=== PATIENT | male | born 1970 | race Caucasian/White ===

== ENCOUNTER 2022-12-24 19:28 | Observation (INO) | payer OTHER ==
[~2022-12-24 19:28] MED LIST: Iopamidol-370 76% 500 ML MDV (1 ML CHARGE) ONE
[2022-12-24 20:54] LABS: #Eosinphils 0.3 thou/uL (0.0-0.7); #Monocytes 0.7 thou/uL (0.11-0.59); #Neutrophils 5.4 thou/uL (1.40-6.50); %Basophils 0.5 % (0.0-1.0); %Eosinophils 3.1 % (0.0-10.0); %Lymphocytes 24.7 % (21.0-51.0); %Monocytes 8.6 % (0.0-10.0); %Neutrophils 62.9 % (42.0-75.0); Hematocrit 41.8 % (42.0-52.0); Mean Corpuscular HGB CONC 33.5 g/dL (32.0-36.0); Mean Corpuscular Hemoglobin 32.3 pg (27.0-31.0); Mean Corpuscular Volume 96.3 fl (78.0-98.0); Mean Platelet Volume 9.6 fL (7.4-10.4); Platelet Count 202 10x3/uL (130-400); RBC Distribution Width 12.7 % (11.5-14.5); Red Blood Cell (RBC) Count 4.34 mill/uL (4.70-6.10); White Blood Cell (WBC) Count 8.7 10x3/uL (4.8-10.8)
[2022-12-24 21:22] LABS: ALT (SGPT) 22 U/L (8-55); AST (SGOT) 24 U/L (5-34); Albumin 4.5 g/dL (3.5-5.0); Alkaline Phosphatase 66 U/L (40-110); Anion Gap 15 mmol/L (10-20); BUN (Urea Nitrogen) 12 mg/dL (8.4-25.7); Bilirubin, Total 0.3 mg/dL (0.2-1.2); Calc. Creatinine Clearance 0 mL/min (70-130); Calcium 9.4 mg/dL (7.8-10.44); Carbon Dioxide 23 mmol/L (22-29); Chloride 103 mmol/L (98-107); Estimated GFR 103; Glucose 83 mg/dL (70-105); Potassium 4.2 mmol/L (3.5-5.1); Protein, Total 7.5 g/dL (6.0-8.3); Sodium 137 mmol/L (136-145)
[2022-12-24 22:17] LABS: PTT 29.8 sec (22.9-36.1); Prothrombin Time 13.1 sec (12.0-14.7)
[2022-12-24] MEDS ORDERED: Piperacillin/Tazobactam 4.5 GM VIAL ONE (22:28)
[2022-12-24 23:56] VITALS: BMI 30.5
[2022-12-25] MEDS ORDERED: Morphine 4 MG/ML VIAL SLOW IVP PRN ×2 (00:47→09:33)
[2022-12-25] MEDS ORDERED: Ondansetron PF 4 MG/2 ML Vial IVP PRN (01:00)
[2022-12-25] MEDS ORDERED: Ondansetron ODT 4 MG TAB SL PRN (01:00)
[2022-12-25] MEDS: Sodium Chloride 0.9% 1,000 ML IV SCH ×2 (01:18→11:23)
[2022-12-25] MEDS: Piperacillin/Tazobactam 3.375 GM in Sodium Chloride 0.9% 100 ML IVPB SCH ×2 (02:37→10:10)
[2022-12-25] MEDS ORDERED: Morphine 2 MG/ML VIAL SLOW IVP PRN (09:33)
[2022-12-25] MEDS ORDERED: Sodium Chloride 0.9% 1,000 ML IV SCH (09:45)
[2022-12-25] MEDS ORDERED: Midazolam HCl 2 mg/2 ml Vial ONE (12:16)
[2022-12-25] MEDS ORDERED: fentaNYL PF 100 MCG/2 ML SYRINGE ONE (12:17)
[2022-12-25] MEDS ORDERED: SUGAMMADEX SODIUM 200 MG/2 ML VIAL ONE (12:17)
[2022-12-25] MEDS ORDERED: PROPOFOL 200 MG/20 ML VIAL ONE (12:23)
[2022-12-25] MEDS ORDERED: Lidocaine 1% PF 5 ML VIAL ONE (12:23)
[2022-12-25] MEDS ORDERED: Ketorolac Tromethamine 30 MG/ML VIAL ONE (12:23)
[2022-12-25] MEDS ORDERED: Ondansetron PF 4 MG/2 ML Vial ONE (12:23)
[2022-12-25] MEDS ORDERED: Dexamethasone 20 MG/5 ML VIAL ONE (12:23)
[2022-12-25] MEDS ORDERED: EPINEPHrine 1 MG/ML AMP ONE (12:25)
[2022-12-25] MEDS ORDERED: Bupivacaine PF 0.5% 30 ML VIAL ONE (12:25)
[2022-12-25] MEDS ORDERED: Meperidine HCl/PF 25 MG/ML VIAL ONE (13:26)
[2022-12-25] MEDS ORDERED: Meperidine HCl/PF 25 MG/ML VIAL SLOW IVP PRN ×2 (13:32)
[2022-12-25] MEDS ORDERED: HYDROmorphone 2 MG/ML VIAL SLOW IVP PRN (13:32)
[2022-12-25] MEDS ORDERED: Promethazine HCl 25 MG/ML VIAL IM PRN (13:32)
[2022-12-25] MEDS ORDERED: Ondansetron HCl/PF 4 MG/2 ML Vial IVP PRN (13:32)
[2022-12-25 15:39] VITALS: BP 157/91; TEMP 97.2
== END 2022-12-25 15:55 | disposition home or self-care (01) ==
LOC: ERS 19:28 → SJJU 22:06
PROVIDERS: ADMIT Surgery; ATTEND Surgery
PROC: 0WUF07Z Supplement Abdominal Wall with Autologous Tissue Substitute, Open Approach (ICD-10-PCS; principal; 2022-12-25)
DX: K42.0 Umbilical hernia with obstruction, without gangrene (principal); I10 Essential (primary) hypertension; Z79.899 Other long term (current) drug therapy
CPT/HCPCS: 36415; 74177; 80053; 85025; 85610; 85730; 86850; 86900; 86901; 93005; 96365; 96376; G0378; J0171; J1100; J1885; J2175; J2250; J2405; J2543; J2704; J3490; J7050; Q9967; S0020